=== PATIENT | male | born 1945 | race Caucasian/White ===

== ENCOUNTER 2019-05-26 12:28 | Inpatient (IN) | payer OTHER ==
[~2019-05-26] VITALS: Ht 177.8 cm; Wt 77.1 kg
[2019-05-26 12:31] VITALS: Ht 177.8 cm; Wt 77.1 kg
--- NOTE | 2019-05-26 12:46 | NUR ---
PT PRESENTS TO ED BIBA FOR ALOC. PER EMS PT WAS SITTING ON [address] WHEN BYSTANDER CALLED 911. WHEN PT WAS ASKED WHY HE WAS SITTING THERE PT STATED "I WAS WALKING HOME FROM THE STORE AND GOT LOST". PT UNABLE TO GIVE MEDICAL HX OR STATE WHERE HE LIVES. PER EMS PT STS HE TAKES ASPRIN AT HOME. EMS STS PT ONLY C/O HEADACHE IN ROUTE TO ED. PT DENIES HITTING HEAD OR ANY OTHER TRAUMA. EMS ALSO STS PT BP WAS 89/53 ON SCENE BUT WENT UP TO 130'S SYSTOLIC AFTER 200ML BOLUS NS. PT ON FULL CM, AAOX3, RESP E/U, ON 2L 02 VIA [place], TWO SIDE RAILS UP. WILL CONTINUE TO MONITOR.
--- NOTE | 2019-05-26 13:21 | NUR ---
PT OFF FLOOR TAKEN FOR CT SCAN VIA RNEY.
[2019-05-26 13:38] LABS: CALCIUM 7.8 mg/dL (8.5-10.1); CARBON DIOXIDE 29.2 mmol/L (21-32); CHLORIDE SERUM 107 mmol/L (98-107); CREATININE SERUM 1.1 mg/dL (0.7-1.3); GLUCOSE SERUM 98 mg/dL (74-106); POTASSIUM SERUM 4.3 mmol/L (3.5-5.1); SODIUM SERUM 140 mmol/L (136-145)
[2019-05-26 13:42] LABS: BASOPHIL % 0.2 % (0-2); PLATELET COUNT 206 x10^3mcL (130-400); RED CELL DISTRIBUTION WIDTH 14.2 % (11.5-14.5)
[2019-05-26 13:42] LABS: ALKALINE PHOSPHATASE 124 U/L (46-116); ALT/SGPT 37 U/L (16-63); AST/SGOT 14 U/L (15-37); BILIRUBIN TOTAL 0.34 mg/dL (0.20-1.00); TOTAL PROTEIN, SERUM 6.2 g/dL (6.4-8.2)
--- NOTE | 2019-05-26 13:53 | NUR ---
PT SITTING UP IN GURNEY, AWAKE, ALERT, PLAYING WITH HIS CLOTHING. SPEAKING IN FULL CLEAR SENTENCES. RESP E/U, NAD NOTED.
--- NOTE | 2019-05-26 15:25 | NUR ---
PT GIVEN SANDWICH, MILK, AND PUDDING TO EAT. PT AAOX4, RESP E/U, SITTING UP ON GURNEY IN POSITION OF COMFORT. PT ON 2L 02 VIA NC.
[2019-05-26 15:32] LABS: UA SPECIFIC GRAVITY 1.015 (1.005-1.035); microscopic required? YES; urine erythrocyte NEGATIVE (NEGATIVE)
--- NOTE | 2019-05-26 16:38 | NUR ---
REPORT GIVEN TO NESSA MELGAR ON TELE UNIT TO ASSUME CARE OF PT.
--- NOTE | 2019-05-26 16:58 | NUR ---
RECEIVED PT VIA GUCHRISTINE FROM E/D, ACCOMPANIED BY RN AND TRANSPORTER. PT A/A/O X 2 (PERSON, PURPOSE), CALM, COOPERATIVE; CROW TO BOTH EARS; CLAIMS THAT HE LIVES IN A "6-BED ROOM IN [facility] PT W/ GENERALIZED WEAKNESS, ABLE TO AMB W/ ASSIST, W/ EPISODES OF FALLING, C/O CHRONIC, INTERMITTENT, ACHING L ANKLE PAIN 5/10, EXACERBATED BY MOVEMENT, WALKING, AND TOUCH, RELIEVED BY PAIN MEDICATIONS AND REST; NO BRUISING NOTED TO AREA; FALL RISK PROTOCOL IN PLACE. ON TELE # 6, HR 89, NSR, DENIES CHEST PAIN OR DISCOMFORT AT THIS TIME. SCD BY BEDSIDE. LUNGS DIM BILATERALLY, CHEST RISING EVENLY, 2LNC, 98%, NO ACUTE RESPIRATORY DISTRESS NOTED; PT STATED HE SMOKES 10 CIGS/DAY. IV SITE LFA CDI, 18G. ORIENTED PT TO ROOM, BED CONTROLS, CALL LIGHT SYSTEM. SIDE RAILS UP X 2, BED IN LOW POSITION. WILL ENDORSE TO NESSA MELGAR.
[2019-05-26 17:33] VITALS: BP 122/79
[2019-05-26 18:01] VITALS: BP 121/76
--- NOTE | 2019-05-26 18:37 | NUR ---
PT STABLE AT THIS TIME WITH NO C/O PAIN, DISTRESS, OR SOB. A/O X2 WITH NO C/O SR OR DIZZINESS. TELE#6 CONNECTED TO PT, DENIES ANY CP OR PRESSURE AT THIS TIME. PT ON 2 LPM O2 NC. LUNGS DIMINISHED BILAT. LEFT ANKLE 5/10 PAIN BUT REFUSES PAIN MGMT AT THIS TIME. IV IN LFA RUNNING NS 100ML/ HR. INTACT AND PATENT WITH NO REDNESS OR INFLAMMATION. SAFETY PRECAUTIONS IN PLACE, CALL LIGHT WITHIN REACH, WILL ENDORSE TO NIGHT NURSE.
--- NOTE | 2019-05-26 20:13 | NUR ---
Awake and verbally responsive. No respiratory distress noted on 02 2lpm via n/c. Denies pain. Denies n/v. No cough or congestion noted at this time. Will cont.to monitor. Call light within reach.
[2019-05-26 20:52] VITALS: BP 125/76
[2019-05-27 02:24] LABS: AMPHETAMINE QUAL UR NONE DETECTED (See below)
--- NOTE | 2019-05-27 04:14 | NUR ---
Afebrile. No significant change in condition noted. No congestion. Received HHNeb treatment with help. Encouraged use of I.S. while awake. In no apparent distress.
[2019-05-27 05:30] VITALS: BP 149/83
--- NOTE | 2019-05-27 07:35 | NUR ---
RECEIVED PT IN BED. ASSESSED AND DOCUMENTED. DENIES ANY PAIN. STABLE. NO SOB NOTED. SAFTEY PRECAUTIONS ARE IN PLACE. WILL MONITOR.
[2019-05-27 07:43] LABS: BASOPHIL % 0.6 % (0-2); PLATELET COUNT 208 x10^3mcL (130-400); RED CELL DISTRIBUTION WIDTH 14.5 % (11.5-14.5)
[2019-05-27 08:03] LABS: CALCIUM 8.2 mg/dL (8.5-10.1); CARBON DIOXIDE 26.7 mmol/L (21-32); CHLORIDE SERUM 105 mmol/L (98-107); CREATININE SERUM 0.9 mg/dL (0.7-1.3); GLUCOSE SERUM 87 mg/dL (74-106); MAGNESIUM 1.7 mg/dL (1.8-2.4); POTASSIUM SERUM 4.3 mmol/L (3.5-5.1); SODIUM SERUM 140 mmol/L (136-145)
[2019-05-27 10:00] VITALS: BP 128/68
--- NOTE | 2019-05-27 10:00 | NUR ---
PT RESTING IN BED COMFORTABLY. DENIES ANY PAIN. STABLE.
[2019-05-27 12:41] VITALS: BP 125/68
--- NOTE | 2019-05-27 14:00 | NUR ---
PT RESTING IN BED COMFORTABLY. ATE LUNCH. NO DISTRESS NOTED. DENIES ANY PAIN. STABLE. STILL SOME CONFUSION NOTED.
[2019-05-27 16:55] VITALS: BP 122/62
--- NOTE | 2019-05-27 18:59 | NUR ---
PT RESTING IN BED COMFORTABLY. DENIES ANY PAIN. STABLE. STILL A/O X2, SOME CONFUSION NOTED. GAVE REPORT TO FINANCIAL RISK MANAGER NURSE.
--- NOTE | 2019-05-27 19:05 | NUR ---
PT RESTING IN BED COMFORTABLY. DENIES ANY PAIN. STABLE. GAVE REPORT TO INTERMEDIATE DESIGNER NURSE.
--- NOTE | 2019-05-27 19:50 | NUR ---
Awake and verbally responsive. No respiratory distress noted on room air. Denies pain at this time. Denies n/v. No cough or congestion noted. Will cont.to monitor. Call light within reach.
[2019-05-27 22:26] VITALS: BP 130/71
--- NOTE | 2019-05-28 05:03 | NUR ---
Afebrile. No significant change in condition noted. Cont.on IV levaquin, cleocin. NO congestion noted. Denies pain. In no apparent distress.
[2019-05-28 06:15] VITALS: BP 120/61
[2019-05-28 06:30] LABS: BASOPHIL % 0.4 % (0-2); PLATELET COUNT 200 x10^3mcL (130-400); RED CELL DISTRIBUTION WIDTH 14.4 % (11.5-14.5)
[2019-05-28 06:55] LABS: CALCIUM 8.3 mg/dL (8.5-10.1); CARBON DIOXIDE 28.5 mmol/L (21-32); CHLORIDE SERUM 104 mmol/L (98-107); CREATININE SERUM 0.8 mg/dL (0.7-1.3); GLUCOSE SERUM 100 mg/dL (74-106); MAGNESIUM 1.6 mg/dL (1.8-2.4); PHOSPHOROUS 3.6 mg/dL (2.5-4.9); POTASSIUM SERUM 4.3 mmol/L (3.5-5.1); SODIUM SERUM 140 mmol/L (136-145)
--- NOTE | 2019-05-28 07:30 | NUR ---
PT IS AAOX2 TO PERSON AND PLACE, CONFUSED. TALKS TO SELF. DENIES H/A AND DIZZINESS. [place] BILATERALLY. TELE [address] READING PACS. PT DENIES C/P, PRESSURE OR PALPTATION. RESP EVEN, SHALLOW AND UNLABORED. LUNG SOUNDS DIMINISHED BILATERALLY. NO COUGH OR SOB NOTED. ON R/A. ABDOMEN SOFT, NONTENDER, NONDISTENDED. BOWEL SOUNDS ACTIVE X4 QUADS. SKIN CDI. NO EMEMA NOTED. IV CATH TO LFA N/S LOCKED, SITE WNL. CALL LIGHT WITHIN REACH. BED IN LOWEST POSITION.
[2019-05-28 08:38] VITALS: BP 128/68
--- NOTE | 2019-05-28 09:30 | NUR ---
DR. ANDREWS MET WITH PT. PT'S DILANTIN LEVEL IS DECREASING BUT STILL NOT WNL. PT TO STAY IN HOSPITAL TO MONITOR LEVEL AND RECEIVE P/T TRAINING. PT AGREES WITH POC.
--- NOTE | 2019-05-28 09:33 | NUR ---
PT ASSISTED TO BATHROOM AND BACK TO BED. PT AMBULATES FULL WEIGHT BEARING WITH STEADY GAIT. NO SOB. DUE MEDS GIVEN AND TOLERATED WELL. RESP EVEN AND UNLABORED. NO RESP DISTRESS NOTED. ON R/A AT THIS TIME. DENIES PAIN. CALL LIGHT WITHIN REACH.
[2019-05-28 11:24] VITALS: BP 158/99
--- NOTE | 2019-05-28 12:00 | NUR ---
PT IS RESTING PEACEFULLY, RESP EVEN AND UNLABORED. NO DISTRESS NOTED. CALL LIGHT WITHIN REACH.
--- NOTE | 2019-05-28 14:21 | NUR ---
RFA IV PULLED OUT WITH CATH INTACT. SITE WNL. COVERED WITH GAUZE AND BANDAID. NEW IV CATH 22G STARTED TO RFA ON SECOND ATTEMPT. COVERED WITH CDI OCCLUSIVE DRESSING. SITE WNL. PT TOLERATED PROCEDURE WELL. DUE MED GIVEN AND TOLERATED WELL. PT DENIES PAIN AT THIS TIME. BREATHING TX HALF COMPLETED. PT REFUSED TO WEAR FACE MASK FOR TX. STATED, "I'M FINE.". CALL LIGHT WITHI REACH.
[2019-05-28 16:40] VITALS: BP 139/78
--- NOTE | 2019-05-28 18:33 | NUR ---
PT IS AAOX2 TO PERSON AND PLACE. RESP EVEN AND UNLABORED. NO RESP DISTRESS NOTED. ON R/A. TELE [address] READING NSR. IV CATH TO IN PLACE SITE WNL. PT DENIES PAIN AND DISCOMFORT AT THIS TIME. CALL LIGHT WITHIN REACH. BED IN LOWEST POSTION. FALL PROTOCOL FOLLOWED.
--- NOTE | 2019-05-28 19:30 | NUR ---
RECEIVED REPORT FROM AM NURSE. PT LAYING DOWN IN BED. PT AAOX2, CONFUSED ABOUT WHERE HE IS AND REASON WHY HE IS HERE. REORIENT TO ENVIROMENT AND REASON HE IS HERE. ON TELE#6 READING NSR. DENIES CP/PRESSURE AT THIS TIME. PALPABLE PULSES TO ALL EXTREMETIES. NO EDEMA NOTED. LUNG SOUNDS DIMINISHED. BREATHING EVEN AND UNLABORED ON RA. NO SOB NOTED. NO ACUTE DITRESS NOTED. ABD SOFT AND NONDISTENDE, ACTIVE BS X4 QUAD. LAST BM 05/28/19. DENIES N/V/D. VOIDS FREELY BRP. AMBULATORY WITH ASSIT. IV TO LFA FLUSHING WELL. SITE WNL. BED AT LOWEST SETTING. SIDE RAILS X2 UP. CALL LIGHT WITHING REACH. WILL CONTINUE TO MONITOR.
[2019-05-28 22:22] VITALS: BP 129/80
--- NOTE | 2019-05-28 23:58 | NUR ---
PT AWAKE LAYING DOWN IN BED, WATCHING TV. BREATHING EVEN AND UNLABORED ON RA. NO ACUTE DISTRESS NOTED. BED AT LOWEST SETTING. SIDE RAILS X2 UP. CALL LIGHT WITHING REACH. WILL CONTINUE TO MONITOR.
--- NOTE | 2019-05-29 06:00 | NUR ---
PT SLEPT AT INTERVALS THROUGHOUT THE NIGHT. BREATHING EVEN AND UNLABORED ON RA. NO RESP DISTRESS NOTED. NO SIGNIFICANT CHANGES DURING SHIFT. ALL NEEDS ASSESSED AND ATTENDED TO. BED AT LOWEST SETTING. SIDE RAILS X2 UP. CALL LIGHT WITHING REACH. WILL ENDORSE CARE TO AM NURSE.
[2019-05-29 06:59] VITALS: BP 125/65
--- NOTE | 2019-05-29 07:30 | NUR ---
RECEIVED PT AAOX2 TO PERSON AND PLACE, CONFUSED. CAN MAKE NEEDS KNOWN, FOLLOW COMMANDS AND VERBALIZE NEEDS. DENIES H/A AND DIZZINESS. PT IS HARD OF HEARING BOTH EARS. TELE [address] READING NSR WITH PACS. RESP EVEN, SHALLOW, AND UNLABORED. LUNG SOUNDS DIMINISHED BILATERALLY. ON R/A. NO COUGH NOTED. ABDOMEN, FLAT, SOFT, NONTENDER, NONDISTENDED. BOWEL SOUNDS ACTIVE X4 QUADS. DENIES N/V/D AND CONSITPATION. SKIN CDI. NO EDEMA. PERIPHERAL PULSES MODERATELY PALPABLE. IV CATH N/S LOCKED TO LFA. SITE WN. CALL LIGHT WITHIN REACH. BED IN LOWEST POSITION. FALL PROTOCOL MAINTAINED.
[2019-05-29 08:28] VITALS: BP 96/63
--- NOTE | 2019-05-29 09:25 | NUR ---
SCHEDULED MEDS GIVEN AND TOLERATED WELL. RESP EVEN AND UNLABORED. NO RESP DISTRESS NOTED. PT DENIES PAIN. X-RAY L FOOT 3 VIEWS TAKEN AT THIS TIME. CALL LIGHT WITHIN REACH.
--- NOTE | 2019-05-29 10:21 | NUR ---
GURMEET PAGE NP SPOKE WITH PT AND DISCUSSED POC. PT TO HAVE DIRECTOR OF COMMUNITY CENTER SEEK SNF PLACEMENT. PT AGREED WITH POC.
--- NOTE | 2019-05-29 12:48 | NUR ---
REPORTED TO GURMEET PAGE NP THAT PT HAD A 2 SECOND RUN OF V-TACH. NO NEW ORDERS AT THIS TIME. PT MADE AWARE.
[2019-05-29 13:20] VITALS: BP 135/76
--- NOTE | 2019-05-29 13:22 | NUR ---
SCHEDULED MED GIVEN. PT SITTING UP IN BED EATING LUNCH. RESP EVEN AND UNLABORED. NO DISTRESS NOTED. PT STATES HIS L ANKLE HURTS BUT HE DOES NOT WANT PAIN MEDICATION. CALL LIGHT WITHIN REACH.
--- NOTE | 2019-05-29 14:43 | NUR ---
PT IS RESTING IN BED. RESP EVEN AND UNLABORED. NO DISTRESS NOTED. CALL LIGHT WITHIN REACH.
[2019-05-29 16:38] VITALS: BP 122/69
--- NOTE | 2019-05-29 17:18 | NUR ---
SCHEDULED MED GIVEN AND TOLERATED WELL. RESP EVEN AND UNLABORED. PT ON R/A, AMBULATED TO BATHROOM INDEPENDENTLY WITH NO SOB. PT BACK IN BED. DENIES PAIN. CALL LIGHT WITHIN REACH.
--- NOTE | 2019-05-29 18:29 | NUR ---
PT IS AAOX2 TO PERSON AND PLACE, CONFUSED. TELE 6 READING NSR WITH INTERMITTENT PACS. RESP EVEN AND UNLABORED. ON R/A. NO DISTRESS NOTED. DENIES PAIN. IVF RUNNING TO [facility]. SITE WNL. CALL LIGHT WITHIN REACH. BED IN LOWEST POSITION.
--- NOTE | 2019-05-29 19:35 | NUR ---
RECEIVED REPORT FROM AM NURSE. PT LAYING DOWN IN BED. PT AAOX2, CONFUSED ABOUT WHERE HE IS AND REASON WHY HE IS HERE. REORIENT TO ENVIROMENT AND REASON HE IS HERE. ON TELE#6 READING NSR. DENIES CP/PRESSURE AT THIS TIME. PALPABLE PULSES TO ALL EXTREMETIES. NO EDEMA NOTED. LUNG SOUNDS DIMINISHED. BREATHING EVEN AND UNLABORED ON RA. NO SOB NOTED. NO ACUTE DITRESS NOTED. ABD SOFT AND NONDISTENDE, ACTIVE BS X4 QUAD. LAST BM 05/29/19. DENIES N/V/D. VOIDS FREELY BRP. AMBULATORY WITH ASSIT. IV TO LFA FLUSHING WELL. SITE WNL. BED AT LOWEST SETTING. SIDE RAILS X2 UP. CALL LIGHT WITHING REACH. WILL CONTINUE TO MONITOR.
[2019-05-29 20:54] VITALS: BP 135/59
--- NOTE | 2019-05-30 00:09 | NUR ---
PT LAYING DOWN IN BED WITH EYES CLOSED. BREATHING EVEN AND UNLABORED ON RA. NO ACUTE DISTRESS NOTED. BED AT LOWEST SETTING. SIDE RAILS X2 UP. CALL LIGHT WITHING REACH. WILL CONTINUE TO MONITOR.
--- NOTE | 2019-05-30 05:34 | NUR ---
PT SLEPT AT INTERVALS THROUGHOUT THE NIGHT. BREATHING EVEN AND UNLABORED ON RA. NO SIGNIFICANT CHANGES DURING SHIFT. ALL NEEDS ASSESSED AND ATTENDED TO. IV TO LFA FLUSHING WELL. SITE WNL. NO ACUTE DISTRESS NOTED. BED AT LOWEST SETTING. SIDE RAILS X2 UP. CALL LIGHT WITHING REACH. WILL ENSORSE CARE TO AM NURSE.
[2019-05-30 05:44] VITALS: BP 118/78
--- NOTE | 2019-05-30 07:10 | NUR ---
RECEIVED PT AAOX2 TO PERSON AND PLACE, CONFUSED. CAN VERBALIZE NEEDS AND OBEY COMMANDS. DENIES H/A AND DIZZINESS. TELE [address] READING NSR WITH PACS. PT DENIES C/P, PRESSURE AND PALPTITATIONS. RESP EVEN AND UNLABORED. LUNG SOUNDS CTA, DIMINISHED BILATARAL LOWER BASES. ON R/A. SKIN CDI, NO EDEMA NOTED. PERIPHERAL PULSES MODERATELY PALPABLE. IV CATH N/S LOCKED TO LFA. SITE WNL. PT DENIES PAIN AT THIS TIME. CALL LIGHT WITHIN REACH. BED IN LOWEST POSITION. BED ALARM ON. FALL PROTOCOL MAINTAINTED.
[2019-05-30 08:40] VITALS: BP 116/85
--- NOTE | 2019-05-30 08:51 | NUR ---
GURMEET PAGE NP MET WITH PT AND DISCUSSED POC. PT IS TO HAVE CXR TODAY FOR COMPARISON, PT HAS ORDER FOR [employer] SUPERVISOR TO SEEK SNF VS [facility] CARE PLACEMENT. REPORTED TO GURMEET THAT PT HAS HAD LABS DRAWN X2 DAYS. GURMEET STATED YES SHE IS AWARE AND NNO AT THIS TIME. PT AGREED WITH POC.
--- NOTE | 2019-05-30 11:22 | NUR ---
PT IS SITTING IN BED WATCHING TV. RESP EVEN AND UNLABORED. NO DISTRESS NOTED. PT ENCOURAGED TO SIT UP IN CHAIR AT BEDSIDE. PT REFUSED. RISKS AND BENEFITS EXPLAINED. PT VERBALIZED UNDERSTANDING. CALL LIGHT WITHIN REACH.
[2019-05-30 13:00] VITALS: BP 123/68
--- NOTE | 2019-05-30 13:56 | NUR ---
ROUTINE MED GIVEN AND TOLERATED WELL. PT SITTING UP IN BED WATCHING TV. ENCOURAGED PT TO GET UP OUT OF BED AND SIT IN BED SIDE CHAIR BUT PT REFUSED. RISKS AND BENEFITS EXPLAINED. PT STATED, "I DON'T CARE.". PT DENIES PAIN. CALL LIGHT WITHIN REACH.
--- NOTE | 2019-05-30 14:06 | NUR ---
PT LFA IV CATH INFILTRATED. IV CATH REMOVED INTACT. SITE WNL, COVERED WITH GAUZE AND BANDAID, WARM COMPRESS APPLIED AND L ARM ELEVATED. NEW IV CATH INSERTED TO RFA, 22G, COVERED WITH CDI OCCLUSIVE DRESSING. PT TOLERATED PROCEDURE WELL. PT IV ABT RESTARTED. CALL LIGHT WITHIN REACH.
[2019-05-30 17:00] VITALS: BP 123/68
[2019-05-30 17:06] VITALS: BP 102/66
--- NOTE | 2019-05-30 18:20 | NUR ---
PT IS AAOX2, CONFUSED. RESP EVEN AND UNLABORED. NO DISTRESS NOTED. DENIES PAIN. IV CATH N/S LOCKED TO [facility], SITE WNL. CALL LIGHT WITHIN REACH. BED IN LOWEST POSITION. WILL ENDORSE ALL CARE TO NOC RN.
--- NOTE | 2019-05-30 18:53 | NUR ---
PT IS REFUSING TO WEAR HIS TELE MONITOR. TELE 6 TAKEN FROM PT'S BEDSIDE TABLE AND RETURNED TO MEDICAL COLLECTIONS REPRESENTATIVE. PT SIGNED REFUSAL TO [employer] FORM AND THE FORM HAS BEEN PLACED IN THE PT'S CHART. GURMEET PAGE NP MADE AWARE.
--- NOTE | 2019-05-30 19:35 | NUR ---
RECEIVED REPORT FROM DAY SHIFT NURSE, DANIELE SZYMANSKI. PT IS ALERT AND ORIENTED. CONFUSED TO PLACE AND TIME. PT IS NIKOLAI LOUIE. PT WAS ON TELE MONITOR BUT REFUSED. DOCUMENTATIONS SIGNED ABOUT REFUSAL. VS ARE FOLLOWS: TEMP 98.6, HR 70 RR 18 BP 130/69, SAO2 92%. PULSES ARE PALPABLE IN ALL FOUR EXTREMITIES. NO EDEMA NOTED. BREATHING IS EVEN AND UNLABORED ON RA. NO SIGNS OF RESP DISTRESS. LUNG SOUNDS DIMINISHED LOUIE. ABD IS SOFT AND NONDISTENDED. BS ACTIVE IN ALL 4Q. PT STATED JUST HAD BM 1 HR AGO. PT IS ABLE TO AMBULATE TO RESTROOM, DOES HAVE PERIODS OF INCONTINENCE. URINAL AT BEDSIDE. SKIN INTACT. IV TO RFA DRY, INTACT, AND PATENT. BED IN LOWEST POSITION. CALL LIGHT WITHIN REACH. WILL CONTINUE TO MONITOR.
[2019-05-30 20:36] VITALS: BP 130/69
--- NOTE | 2019-05-30 21:00 | NUR ---
ROUTINE MEDICATIONS ADMINISTERED AND TOLERATED WELL. NO SIGNS OF ACUTE DISTRESS. DENIES PAIN AT THIS TIME. WILL CONTINUE TO MONITOR.
--- NOTE | 2019-05-30 23:45 | NUR ---
PT IS AWAKE AND WATCHING TV. BREATHING IS EVEN AND UNLABORED. NO SIGNS OF RESP DISTRESS. PT REQUESTED A BANDAID FOR A TINY CUT, NO BLEEDING NOTED, BANDAID APPLIED. DENIES PAIN AT THIS TIME. RESTING COMFORTABLY. CALL LIGHT WITHIN REACH. WILL CONTINUE TO MONITOR.
--- NOTE | 2019-05-31 02:16 | NUR ---
PT IS RESTING COMFORTABLY IN BED, WATCHING TV. DENIES ANY PAIN. BREATHING IS EVEN AND UNLABORED. CALL LIGHT WITHIN REACH. BED IN LOWEST POSITION. WILL CONTINUE TO MONITOR.
--- NOTE | 2019-05-31 05:25 | NUR ---
PT SLEPT THROUGHOUT THE NIGHT. COMPLIED WITH NURSING CARE THROUGHOUT SHIFT WITH NO ACUTE EVENTS OVERNIGHT. COMFORT AND SAFETY MEASURES MAINTAINED. ALL NEEDS ASSESSED AND ATTENDED TO. WILL CONTINUE TO MONITOR AND ENDORSE CARE TO DAY SHIFT NURSE.
[2019-05-31 05:50] VITALS: BP 130/66
[2019-05-31 07:03] LABS: CALCIUM 8.4 mg/dL (8.5-10.1); CARBON DIOXIDE 25.3 mmol/L (21-32); CHLORIDE SERUM 103 mmol/L (98-107); CREATININE SERUM 0.7 mg/dL (0.7-1.3); GLUCOSE SERUM 94 mg/dL (74-106); POTASSIUM SERUM 4.1 mmol/L (3.5-5.1); SODIUM SERUM 138 mmol/L (136-145)
[2019-05-31 07:08] LABS: BASOPHIL % 0.9 % (0-2); PLATELET COUNT 253 x10^3mcL (130-400)
[2019-05-31 07:27] LABS: RED CELL DISTRIBUTION WIDTH 14.8 % (11.5-14.5)
--- NOTE | 2019-05-31 07:49 | NUR ---
ENDORSED CARE TO DAY SHIFT NURSE, JUSTINE SZYMANSKI.
[2019-05-31 09:14] VITALS: BP 120/65
--- NOTE | 2019-05-31 09:36 | NUR ---
19: 0800: REPORT RECEIVED FROM NESSA STRINGER. PATIENT SLEEPING IN BED. NO SIGNS OF DISTRESS NOTED. BREATHING EVEN AND UNLABORED. WILL CONITINUE TO MONITOR. CALL LIGHT WITHIN REACH.
[2019-05-31] MEDS ORDERED: ROC1I IV (09:51)
[2019-05-31 13:12] VITALS: BP 109/61
--- NOTE | 2019-05-31 14:53 | NUR ---
PHYSICAL THERAPY DAILY NOTES CO-SIGN All documentation done by the Inspector Process for 05/31/19 has been reviewed. I agree with the documentation. Reviewed/Co-Signed by: Sahara Recinos PT Documentation Done by: DEANA BARROSO PTA
--- NOTE | 2019-05-31 15:45 | NUR ---
PATIENT RESTING IN BED WATCHING TV. NO SIGNS OF DISTRESS. MEDICATIONS GIVEN SCHEDULED. WILL CONTINUE TO MONITOR. CALL LIGHT WITHIN REACH.
[2019-05-31 17:10] VITALS: BP 109/61
--- NOTE | 2019-05-31 17:27 | NUR ---
REPORT GIVEN TO NESSA GUTIERREZ FROM COMMUNITY EXTRACTION OPERATOR. PATIENT TO BE TRANSFERRED TO FACILITY FOR IV ROCEPHIN ATB FOR 7 DAYS AND PHYSICAL THERAPY. [facility] PICKED UP PATIENT VIA GURNEY. PATIENT HAS NO SIGNS OF DISTRESS.
== END 2019-05-31 17:30 | DRG 193 ==
LOC: ED 12:28 → DU 15:50 → MU 05-31 05:31 → DU 05-31 05:46
PROVIDERS: Emergency Medicine; ADMIT Internal Medicine
DX: J18.9 Pneumonia, unspecified organism (principal); J96.01 Acute respiratory failure with hypoxia; G93.41 Metabolic encephalopathy; I50.42 Chronic combined systolic (congestive) and diastolic (congestive) heart failure; E44.0 Moderate protein-calorie malnutrition; E83.51 Hypocalcemia; E83.42 Hypomagnesemia; D64.9 Anemia, unspecified; Z68.24 Body mass index [BMI] 24.0-24.9, adult; F17.210 Nicotine dependence, cigarettes, uncomplicated
CPT/HCPCS: 36600; 87804; 90658; 97116-GP; 97530-GP; G0378; G0480; J0456; J0696; J1644; J1956; J3475; J3490; J7030; J7040; J7050; J7060; J7620; Q0092